=== PATIENT | male | born 1995 | race African-American/Black ===

== ENCOUNTER 2018-12-30 20:38 | Emergency (ER) | payer OTHER ==
[~2018-12-30] VITALS: Ht 170.2 cm; Wt 60.8 kg
[2018-12-30] MEDS ORDERED: CARAFATE 1 GM TA1 G1 PO (23:25)
[2018-12-30] MEDS ORDERED: PRILOSEC OTC20 MG PO (23:25)
[2018-12-30 23:45] VITALS: BP 111/83
--- NOTE | 2018-12-31 11:54 | EKG ---
[place] [address] [facility] [place] [address] [place] [address] ELECTROCARDIOGRAM REPORT Name: LILIA MAC Room #: WANG Felder#: [id number] ������������������ Admission: 12/30/18 ������������������ Attend Phys: Discharge: 12/30/18 ������������������ Date of : [birth year] Report #: [id number] ����������������������������������������������������������������� [id number] THIS REPORT FOR: //name// [facility] ED Test Date: 2018-12-30 Test Time: 21:11:35 Pat Name: LILIA MAC Department: Room: Gender: M [employer] Machine Operator: TSTORCK : 1995 Requested By: Silvia Mckeon Order Number: [id number] MD: Lang Marx Measurements Intervals [place] Rate: 60 P: 41 GA: 160 QRS: 38 QRSD: 84 T: 43 QT: 379 QTc: 379 Interpretive Statements Sinus rhythm ST elevation suggests early repolarization versus pericarditis No previous ECG available for comparison Electronically Signed On 12-31-2018 11:54:33 CDT by Lang Marx [email or web address] ��������������������������������������������� <ELECTRONICALLY SIGNED> ���������������������������������������� By: Lang Marx MD ��������������������������������������������� 12/31/18 1154 [id number] [id number] Lang Marx MD /EPI
== END 2018-12-30 23:46 | disposition home or self-care (01) ==
LOC: ER 20:38
DX: K21.9 Gastro-esophageal reflux disease without esophagitis (principal)